=== PATIENT | female | born 1975 | race Caucasian/White ===

== ENCOUNTER 2016-08-12 17:39 | Emergency (ER) | payer SELFPAY ==
[2016-08-12 18:36] VITALS: BP 127/82
--- NOTE | 2016-08-20 19:59 | UC ---
FLU HPI - HPI Summary HPI Summary: tried, scratchy throat, feels run down - History of Current Complaint Chief Complaint: UCRespiratory Stated Complaint: SORE THROAT Time Seen by Provider: 08/12/16 18:15 Hx Obtained From: Patient Hx Last Menstrual Period: 07/31/16 ?: No Onset/Duration: Sudden Onset Severity Currently: Mild Severity Initially: Mild Pain Intensity: 3 Pain Scale Used: 0-10 Numeric Associated Signs & Symptoms: Positive: Sore Throat - Allergy/Home Medications Allergies/Adverse Reactions: Allergies Allergy/AdvReac Type Severity Reaction Status Date / Time No Known Allergies Allergy Verified 08/12/16 18:34 Home Medications: Home Medications Albuterol HFA INHALER* [Ventolin HFA Inhaler*] 1 puff INH Q4H PRN 08/12/16 [ History Confirmed 08/12/16] Multiple Vitamin [Multi Vitamin] 1 tab PO 08/12/16 [History] Omeprazole CAP* [Prilosec CAP* 20 MG] 20 mg PO DAILY 08/12/16 [History Confirmed 08/12/16] PMH/Surg Hx/FS Hx/Imm Hx Previously Healthy: No Respiratory History Of: Reports: Asthma - Surgical History Surgical History: None - Family History Family History: none known - Social History Occupation: Employed Full-time Lives: With Family Alcohol Use: None Substance Use Type: None Smoking Status (MU): Unknown if Ever Smoked Review of Systems Constitutional: Fatigue Skin: Negative Eyes: Negative ENT: Sore Throat - scratchy Respiratory: Negative Cardiovascular: Negative Gastrointestinal: Negative Genitourinary: Negative Motor: Negative Neurovascular: Negative Musculoskeletal: Negative Neurological: Negative Psychological: Negative All Other Systems Reviewed And Are Negative: Yes Physical Exam Triage Information Reviewed: Yes Appearance: Well-Appearing, No Pain Distress, Well-Nourished Vital Signs: Initial Vital Signs Temp 97.8 F 08/12/16 18:31 Pulse 77 08/12/16 18:31 Resp 18 08/12/16 18:31 BP 127/82 08/12/16 18:31 Pulse Ox 100 08/12/16 18:31 Vital Signs Reviewed: Yes Eye Exam: Normal Eyes: Positive: Conjunctiva Clear ENT Exam: Normal ENT: Positive: Normal ENT inspection, Hearing grossly normal. Negative: Trismus , Muffled/hoarse voice Neck exam: Normal Neck: Positive: Supple, Nontender Respiratory Exam: Normal Respiratory: Positive: Chest non-tender, Lungs clear, Normal breath sounds, No respiratory distress, No accessory muscle use Cardiovascular Exam: Normal Cardiovascular: Positive: RRR, No Murmur, Pulses Normal, Brisk Capillary Refill Musculoskeletal Exam: Normal Musculoskeletal: Positive: Strength Intact, ROM Intact, No Edema Neurological Exam: Normal Neurological: Positive: Alert, Muscle Tone Normal Psychological Exam: Normal Skin Exam: Normal Flu Course/Dx - Course Course Of Treatment: rest fulids, tylenol, ibuprofen follow with pcp re-check prn - Differential Dx/Diagnosis Differential Diagnosis/HQI/PQRI: Broncholiolitis, Influenza, Pneumonia, RSV, Upper Respiratory Infection Provider Diagnoses: URI Discharge - Discharge Plan Condition: Stable Disposition: HOME Patient Education Materials: Upper Respiratory Infection (ED), Viral Syndrome ( ED) Forms: *Work Release Referrals: [facility] [place] PHYSICIAN REFERRAL [Outside] - If Needed
== END 2016-08-12 18:39 | disposition home or self-care (01) ==
LOC: UCEAST 17:39
DX: J06.9 Acute upper respiratory infection, unspecified (principal)
CPT/HCPCS: 99201; G0463

== ENCOUNTER 2017-03-10 18:17 | Emergency (ER) | payer OTHER ==
[2017-03-10 18:30] VITALS: BP 137/83
--- NOTE | 2017-03-10 19:05 | UC ---
Jacy Carey Rebecca, scribed for Luci Potter MD on 03/10/17 at 1838 . Respiratory Complaint HPI - HPI Summary HPI Summary: Pt is a 42 y/o F who presents to [facility] c/o sore throat, myalgias, fatigue, BOSE and pain in the eyes when they move for 3 days. Associated pain is currently severe, ranked 8/10. Has been taking echinacea, acyclovair and 1 dose of Motrin at 1100 today. Additionally c/o cold sore that appeared 3 days ago and nausea and "overheating" all day yesterday. Denies sinus pain, visual changes, ear pain and vomiting. Sx aggravated and alleviated by nothing. Confirms that she has been staying hydrated both yesterday and today. Exposure to her niece over the weekend and she had a Dx of strep yesterday. 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 PMHx cold sores. - History of Current Complaint Chief Complaint: UCRespiratory Stated Complaint: SORE THROAT,HEADACHE,COUGH Time Seen by Provider: 03/10/17 18:33 Hx Obtained From: Patient Hx Last Menstrual Period: 02/22/17 Onset/Duration: Lasting Days - 3 days, Still Present Severity Currently: Severe Pain Intensity: 8 Pain Scale Used: 0-10 Numeric Aggravating Factors: Nothing Alleviating Factors: Nothing - Allergies/Home Medications Allergies/Adverse Reactions: Allergies Allergy/AdvReac Type Severity Reaction Status Date / Time Aspirin Allergy Rash Verified 03/10/17 18:31 PMH/Surg Hx/FS Hx/Imm Hx - Additional Past Medical History Additional PMH: NEGATIVE PMHx of DM, CAD, HTN. Respiratory History: Asthma - Surgical History Surgical History: None - Family History Known Family History: Positive: Diabetes, Other - Breast CA - Social History Alcohol Use: Occasionally Substance Use Type: None Smoking Status (MU): Former Smoker Review of Systems Constitutional: Fatigue, Other - "overheating" and cold sore Skin: Negative Eyes: Other - Eye pain when she moves them ENT: Sore Throat Respiratory: Negative Cardiovascular: Negative Gastrointestinal: Nausea Genitourinary: Negative Motor: Negative Neurovascular: Negative Musculoskeletal: Myalgia Neurological: Negative Psychological: Negative All Other Systems Reviewed And Are Negative: Yes - Comments Additional Review of Systems Comments: NEGATIVE: Sinus pain, visual changes, ear pain and vomiting. Physical Exam Vital Signs: Initial Vital Signs Temp 97.1 F 03/10/17 18:27 Pulse 89 03/10/17 18:27 Resp 18 03/10/17 18:27 BP 137/83 03/10/17 18:27 Pulse Ox 98 03/10/17 18:27 Diagnostic Evaluation - Laboratory O2 Sat by Pulse Oximetry: 98 Discharge - Discharge Plan Condition: Stable Disposition: HOME Prescriptions: Amoxicillin PO (*) [Amoxicillin 875 MG (*)] 875 mg PO BID #20 tab Fluconazole 150 MG (NF) [Diflucan 150 mg (NF)] 150 mg PO ONCE #1 tab Patient Education Materials: Pharyngitis (ED) Forms: *School Release, *Work Release Referrals: No Primary Care Phys,NOPCP [Primary Care Provider] - Additional Instructions: - Okay to alternate ibuprofen (Advil, Motrin) and Tylenol every 3 hours for pain. Take with food. Do NOT take for more than 4-5 days - Okay to gargle and spit every 4 hours as needed for pain - take antibiotics as prescribed until gone - Stay well hydrated - frequent sips of cold fluids will be soothing to your throat (popsicles, jello, ice cream, ice water). Avoid excess caffeine until your symptoms have resolved. - Do not share eating, drinking utensils. Throw out your toothbrush when your symptoms resolved -Throat infections are spread by oral secretions - do not share eating or drinking utensils until you symptoms are resolved. Clean items that may get your secretions such as cell phones, ipads, computer mouse, television remotes - Contact your doctor to arrange a follow-up appointment as needed you have been given a prescription for diflucan - okay to use as needed at the end of your antibiotics for vaginal yeast infection The documentation as recorded by the Jacy gonzales Rebecca accurately reflects the service I personally performed and the decisions made by , Luci Potter MD.
== END 2017-03-10 19:05 | disposition home or self-care (01) ==
LOC: UCEAST 18:17
DX: J02.9 Acute pharyngitis, unspecified (principal); Z87.891 Personal history of nicotine dependence; J45.909 Unspecified asthma, uncomplicated
CPT/HCPCS: 87651; 99212; G0463

== ENCOUNTER 2017-04-13 15:35 | Emergency (ER) | payer OTHER ==
[2017-04-13] MEDS ORDERED: Ketorolac INJ* 60 MG/2 ML VIAL IM ONE (16:09)
--- NOTE | 2017-04-13 16:14 | ED ---
Back Pain - HPI Summary HPI Summary: 42F presents with left sided back pain that radiates down leg. She states it is a sharp pain down her leg. She denies any numbness or tingling. no trauma. history of back pain but not in a while. Has been taking motrin without relief. tried chirapractor, heat/ice, massage without relief. no loss of bowel or bladder or saddle anaesthesia. no weakness when walking. unable to lay down due to extreme pain. - History of Current Complaint Chief Complaint: EDExtremityLower Stated Complaint: BACK /LEG PAIN Time Seen by Provider: 04/13/17 15:43 Hx Last Menstrual Period: 02/22/17 Pain Intensity: 10 - Allergies/Home Medications Allergies/Adverse Reactions: Allergies Allergy/AdvReac Type Severity Reaction Status Date / Time Aspirin Allergy Rash Verified 03/10/17 18:31 PMH/Surg Hx/FS Hx/Imm Hx Endocrine/Hematology History: Denies: Hx Anticoagulant Therapy Respiratory History: Reports: Hx Asthma Infectious Disease History: No Infectious Disease History: Denies: Traveled Outside the [place] in Last 30 Days - Family History Known Family History: Positive: Diabetes, Other - Breast CA Family History: none known - Social History Alcohol Use: Occasionally Substance Use Type: Reports: None Smoking Status (MU): Former Smoker Review of Systems Negative: Fever Negative: Chest Pain Negative: Shortness Of Breath Positive: Myalgia - left sided back pain All Other Systems Reviewed And Are Negative: Yes Physical Exam Triage Information Reviewed: Yes Vital Signs On Initial Exam: Initial Vitals Temp Pulse Resp BP Pulse Ox 97.9 F 81 14 135/77 98 04/13/17 15:38 04/13/17 15:38 04/13/17 15:38 04/13/17 15:38 04/13/17 15:38 Vital Signs Reviewed: Yes Appearance: Positive: Pain Distress Skin: Positive: Warm, Dry Head/Face: Positive: Normal Head/Face Inspection Eyes: Positive: Normal, Conjunctiva Clear Respiratory/Lung Sounds: Positive: Clear to Auscultation, Breath Sounds Present Cardiovascular: Positive: Normal, RRR Musculoskeletal: Positive: Strength/ROM Intact - lower extremity, Limited @ - back due to pain, Other - tenderness over left SI joint and left side of back, no midline tenderness. Left SLR pos. good pulses Diagnostics - Vital Signs Vital Signs Temp Pulse Resp BP Pulse Ox 04/13/17 15:47 97.9 F 81 14 135/77 98 04/13/17 15:38 97.9 F 81 14 135/77 98 - Laboratory Lab Statement: Any lab studies that have been ordered have been reviewed, and results considered in the medical decision making process. Back Pain Course/Dx - Course Course Of Treatment: 42F presents with left sided back pain that radiates down leg. She states it is a sharp pain down her leg. She denies any numbness or tingling. no trauma. history of back pain but not in a while. Has been taking motrin without relief. tried chirapractor, heat/ice, massage without relief. no loss of bowel or bladder or saddle anaesthesia. no weakness when walking. unable to lay down due to extreme pain. on exam tederness to left SI joint. no midline tenderness back. left pos SLR. good strength lower extremity. will treat with steriod and muscle relaxer. patient is in visible pain distress on exam will give tramadol for break through pain. patient understands and agrees with plan. - Diagnoses Differential Diagnosis/HQI/PQRI: Positive: Herniated Disc, Strain, Sprain, Other - sciatica Provider Diagnoses: Sciatica Discharge - Discharge Plan Condition: Good Disposition: HOME Prescriptions: Cyclobenzaprine TAB* [Flexeril 10 MG TAB*] 10 mg PO TID PRN #15 tab PRN Reason: Pain Methylprednisolone [Medrol Dosepak 4 MG*] 4 mg PO .SEE BERTO INSTRUCTION #1 packet traMADol TAB* [Ultram*] 25 mg PO Q6HR PRN #16 tab MDD 4 PRN Reason: Pain - Moderate To Severe Patient Education Materials: Sciatica (ED) Forms: *Work Release Referrals: Tristan Kingston III [employer] [Primary Care Provider] - Additional Instructions: Follow directions on package for Medrol pack Take muscle relaxers three times a day for 3 days Can apply OTC lidocaine patches to area Use ibuprofen or Tylenol for pain every 6 hours, use tramadol every 6 hours for break through pain, caution as has sedating effect to it ice/heat area, move as much as possible Follow up with primary within 5 days Return to ED if develop any new or worsening symptoms
[2017-04-13 16:51] VITALS: BP 119/70
== END 2017-04-13 16:50 | disposition home or self-care (01) ==
LOC: ED 15:35
DX: M54.30 Sciatica, unspecified side (principal); M54.9 Dorsalgia, unspecified; Z87.891 Personal history of nicotine dependence
CPT/HCPCS: 96372; 99282; J1885

== ENCOUNTER 2018-04-10 10:06 | Emergency (ER) | payer OTHER ==
[2018-04-10 10:31] VITALS: BP 140/79
--- NOTE | 2018-04-10 11:17 | UC ---
UC General HPI - HPI Summary HPI Summary: This pt is a 43 y/o female presenting to [facility] c/o sinus congestion and cough since yesterday. Pt reports she is in the process of moving and while packing she noticed there was a lot of black mold everywhere. Yesterday she states it was very hot and humid while cleaning and began coughing. Today she feels worse. Denies fever, nausea, vomiting.Pt reports sinus pressure, ear pressure. + fatigue. No rash. + PND. 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 Allergic to aspirin. Denies possibility of . She takes omeprazole every day. Pt has hx of yeast infections. Patients medication reviewed this visit. - History of Current Complaint Chief Complaint: UCRespiratory Stated Complaint: CONGESTED Hx Obtained From: Patient Hx Last Menstrual Period: 03/16/18 Onset/Duration: Lasting Days - 1, Still Present Timing: Constant Onset Severity: Mild Current Severity: Moderate Pain Intensity: 4 Aggravating: nothing Alleviating: nothing Associated Signs & Symptoms: Positive: Cough, Other - POS: sinus congestion. Negative: Abdominal Pain, Dizziness, Fever, Nausea, Vomiting - Allergy/Home Medications Allergies/Adverse Reactions: Allergies Allergy/AdvReac Type Severity Reaction Status Date / Time aspirin Allergy Rash Verified 04/10/18 10:31 PMH/Surg Hx/FS Hx/Imm Hx - Additional Past Medical History Additional PMH: PMHx: yeast infections Previously Healthy: Yes Other Cardiovascular History: DENIES: HTN GI/ History: Gastroesophageal Reflux Other History Of: Negative For: Anticoagulant Therapy - Surgical History Surgical History: None - Family History Known Family History: Positive: Diabetes, Other - Breast CA Family History: none known - Social History 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 EOM intact and full ENT: Hearing grossly normal TM x 2 clear,turbinates inflammed and boggy. mild max sinus pain L>R + PND mmoist, uvula midline, no exudate, no erythema Neck: Positive: Supple Respiratory: Positive: No respiratory distress, No accessory muscle use + CTA throughout no w/r mild intermittent cough Cardiovascular: RRR nl s1, s2 no m/r CBT <2 sec abd soft + BS nt/nd no guarding, no distension Musculoskeletal Exam: AQUINO x 4 without difficulty Strength Intact, ROM Intact Neurological: Positive: Alert, + sensation throughout Psychological: Positive: Normal Response To Family Skin: Positive: no rash, no ecchymosis Triage Information Reviewed: Yes Vital Signs: Initial Vital Signs Temp 97.2 F 04/10/18 10:29 Pulse 74 04/10/18 10:29 Resp 18 04/10/18 10:29 BP 140/79 04/10/18 10:29 Pulse Ox 100 04/10/18 10:29 Course/Dx - Course Course Of Treatment: Patient presents with sinus congestion postnasal drip and cough starting yesterday. Patient states it started when she was packing to move. Patient states it was hot and humid and she had black mold. Patient did not take anything prior to arrival. Patient does have a history of allergies. On exam vital signs are stable. Patient noted to have boggy turbinates with postnasal drip. Discussed with patient at length. Recommend patient start decongestant and Flonase today. We'll send a prescription for amoxicillin. Patient only 48 hours and fill only if symptoms persist or worsen, fever, or secretions become thicker green. Patient also given a one-time dose of Diflucan and she frequently gets yeast infections with antibiotics. Strict return precautions. Patient comfortable in agreement with plan. Pt's BP mildly elevated - recommend recheck with pcp - Differential Dx - Multi-Symptom Provider Diagnoses: Rhinosinusitis Discharge - Sign-Out/Discharge Documenting (check all that apply): Patient Departure - Discharge All imaging exams completed and their final reports reviewed: No Studies - Discharge Plan Condition: Stable Disposition: HOME Prescriptions: Amoxicillin PO (*) [Amoxicillin 500 MG CAP*] 500 mg PO Q12H #20 cap Fluconazole [Diflucan 150 MG (NF)] 150 mg PO ONCE PRN #1 tab PRN Reason: vaginal yeast infection Fluticasone NASAL SPRAY 50MCG* [Flonase NASAL SPRAY 50MCG*] 2 spray BOTH NARES DAILY #1 btl Patient Education Materials: Rhinosinusitis (ED) Referrals: Tristan Kingston III, [employer] [Primary Care Provider] - Additional Instructions: - Stay well hydrated. Drink plenty of non-alcoholic, non-caffinated beverages. - Alternate ibuprofen (Advil, Motrin) 600mg and Tylenol every 3 hours for pain or fever. Take with food. Do NOT take for more than 4-5 days. - It is recommended you use nasal spray as prescribed. It is recommended you start a decongestant (Claritin-D, Bobbi-D, Zyrtec-D) daily. - If your symptoms persist after 48 hours, start antibiotics as prescribed - take until gone. - If you start antibiotics, change your pillowcase and your pillow after 48 hours - you have been given a prescription for diflucan - okay to take as needed for yeast infection - get plenty of restful sleep - contact your doctor or return with questions or concerns - Billing Disposition and Condition Condition: STABLE Disposition: Home - Attestation Statements Document Initiated by Jazmine: Yes Documenting Scribe: Thea Andujar Provider For Whom Roopa is Documenting (Include Credential): Luci Potter MD Scribe Attestation: Thea Carey, scribed for Luci Potter MD on 04/10/18 at 1125. Scribe Documentation Reviewed: Yes Provider Attestation: The documentation as recorded by the Thea gonzales accurately reflects the service I personally performed and the decisions made by me, Luci Potter MD
== END 2018-04-10 11:26 | disposition home or self-care (01) ==
LOC: UCEAST 10:06
DX: J32.9 Chronic sinusitis, unspecified (principal); Z88.6 Allergy status to analgesic agent; Z87.891 Personal history of nicotine dependence
CPT/HCPCS: 99212; G0463